=== PATIENT | female | born 1935 | race Caucasian/White ===

== ENCOUNTER 2018-01-06 09:22 | Inpatient (IN) ==
[2018-01-06] MEDS ORDERED: ONDANSETRON 4 MG/2 ML VIAL IV PRN ×2 (09:51→13:44)
[2018-01-06] MEDS ORDERED: MORPHINE 2 MG/1 ML SYRINGE IV PRN (09:51)
[2018-01-06] MEDS ORDERED: ALUM/MAG/SIMETH/LIDO VISC 1:1 30 ML BOTTLE PO STA (09:51)
[2018-01-06] MEDS ORDERED: ASPIRIN 325 MG TABLET PO STA (09:51)
[2018-01-06] MEDS ORDERED: ENOXAPARIN 100 MG/ML SYRINGE SUBCUT STA (09:51)
[2018-01-06] MEDS ORDERED: ALUM/MAG/SIMETH/LIDO VISC 1:1 30 ML BOTTLE PO ONE (10:06)
[2018-01-06] MEDS ORDERED: ENOXAPARIN 60 MG/0.6 ML SYRINGE ONE (10:06)
[2018-01-06] MEDS ORDERED: ASPIRIN 325 MG TABLET ONE (10:06)
[2018-01-06 10:32] LABS: Basophils # 0.1 10*3/uL (0.0-0.2); Basophils % 0.7 % (0.0-0.8); Eosinophils # 0.1 10*3/uL (0.0-0.87); Hematocrit 43.7 VOL% (35.7-47.0); Hemoglobin 14.1 GM/DL (12.0-16.0); Immature Granulocytes % 0.5 %; Immature Granulocytes Absolute 0.04 #; Lymphocytes # 1.8 10*3/uL (1.4-4.0); Lymphocytes % 22.2 % (21.3-54.2); Mean Corpuscular HGB Conc 32.3 GM/DL (32-36); Mean Corpuscular Hemoglobin 28 PG (27-34); Mean Corpuscular Volume 85.5 FL (87-102); Mean Platelet Volume 10.3 FL (9.6-12.0); Monocytes # 0.5 10*3/uL (0.11-0.8); Monocytes % 6.4 % (1.7-12.7); Neutrophils # 5.6 10*3/uL (1.4-7.4); Neutrophils % 69.2 % (38.7-73.9); Platelet Count 240 T/CUMM (130-400); Red Blood Count 5.11 MC/CUMM (3.8-5.5); Red Cell Distribution Width 14.4 % (9.3-17.3); White Blood Count 8.1 T/CUMM (4-12)
[2018-01-06 10:43] LABS: Apearance,Urine CLOUDY (Clear); Bacteria,Urine Many /HPF (Few); Bilirubin,Urine Negative (Negative); Blood, Urine Negative (Negative); Glucose,Urine (UA) Negative (Negative); Hyaline Casts,Urine 13 /LPF (0-3); Ketones,Urine 5 mg/dL (Negative); Mucus,Urine Few /LPF (Occasional); Nitrite,Urine Positive (Negative); Protein,Urine 30 MG/DL; RBC,Urine 16 /HPF (0-4); Squamous Epithelial Cell,Urine Occasional /HPF (0-10); Urine Color Amber (Yellow); Urine Specific Gravity 1.014 (1.001-1.035); WBC,Urine 1628 /HPF (0-6)
[2018-01-06 10:49] LABS: PT Patient Result 10.8 SECS; Partial Thromboplastin Time 27.3 SECS (0-40)
[2018-01-06 10:52] LABS: Alanine Aminotransferase 18 U/L (13-56); Albumin 4.1 G/DL (3.4-5.0); Alkaline Phosphatase 69 U/L (45-117); Aspartate Amino Transferase 16 U/L (0-37); Bilirubin,Total < 0.39 MG/DL (0.2-1.0); Blood Urea Nitrogen 14 MG/DL (7-18); Calcium 9.4 MG/DL (8.5-10.1); Glucose 109 MG/DL (74-106); Osmolality,Calculated 280.4 MOS/KG (273-304); Potassium 3.5 MMOL/L (3.5-5.1); Sodium 140 MMOL/L (136-145); Total Protein 8.1 G/DL (6.4-8.3)
[2018-01-06] MEDS ORDERED: cefTRIAXone 1,000 MG in SODIUM CHLORIDE 0.9% 100 ML IV STA (12:36)
[2018-01-06] MEDS ORDERED: cefTRIAXone 1,000 MG VIAL ONE (12:38)
[2018-01-06] MEDS ORDERED: ALBUTEROL 2.5 MG/3 ML NEB RESP TX PRN (13:44)
[2018-01-06] MEDS ORDERED: ACETAMINOPHEN 325 MG TABLET PO PRN (13:44)
[2018-01-06] MEDS ORDERED: PANTOPRAZOLE 40 MG VIAL IV SCH (14:00)
[2018-01-06] MEDS ORDERED: CLORAZEPATE 7.5 MG TABLET PO PRN (19:00)
[2018-01-06] MEDS ORDERED: hydrALAZINE 20 MG/1 ML VIAL IV PRN (19:04)
[2018-01-06 19:05] LABS: Troponin I Only < 0.015 NG/ML (0.00-0.045)
[2018-01-06] MEDS: SODIUM CHLORIDE 0.9% 1,000 ML IV SCH (19:35)
[2018-01-06] MEDS: POTASSIUM CHLORIDE 20 MEQ TABLET PO SCH (20:54)
[2018-01-06] MEDS: PANTOPRAZOLE 40 MG TABLET PO SCH (20:54)
[2018-01-06] MEDS: SUCRALFATE 1 GM TABLET PO SCH (20:54)
[2018-01-06] MEDS ORDERED: NITROGLYCERIN 0.4 MG/HR PATCH TRANSDERM SCH (21:00)
[2018-01-07 05:41] LABS: Basophils % 0.5 % (0.0-0.8); Eosinophils # 0.2 10*3/uL (0.0-0.87); Eosinophils % 2.3 % (0.00-10.9); Hemoglobin 11.6 GM/DL (12.0-16.0); Immature Granulocytes % 0.3 %; Immature Granulocytes Absolute 0.02 #; Lymphocytes # 2.8 10*3/uL (1.4-4.0); Lymphocytes % 38.6 % (21.3-54.2); Mean Corpuscular HGB Conc 34.1 GM/DL (32-36); Mean Corpuscular Hemoglobin 28 PG (27-34); Mean Corpuscular Volume 82.7 FL (87-102); Mean Platelet Volume 10.5 FL (9.6-12.0); Monocytes # 0.8 10*3/uL (0.11-0.8); Monocytes % 10.6 % (1.7-12.7); Neutrophils # 3.5 10*3/uL (1.4-7.4); Neutrophils % 47.7 % (38.7-73.9); Platelet Count 202 T/CUMM (130-400); Red Blood Count 4.11 MC/CUMM (3.8-5.5); Red Cell Distribution Width 14.7 % (9.3-17.3); White Blood Count 7.3 T/CUMM (4-12)
[2018-01-07 06:19] LABS: Calcium 8.7 MG/DL (8.5-10.1)
[2018-01-07] MEDS: ASPIRIN EC 81 MG TABLET PO SCH (08:23)
[2018-01-07] MEDS: POTASSIUM CHLORIDE 20 MEQ TABLET PO SCH ×2 (08:23→21:16)
[2018-01-07] MEDS: SUCRALFATE 1 GM TABLET PO SCH ×4 (08:23→21:16)
[2018-01-07] MEDS: PANTOPRAZOLE 40 MG TABLET PO SCH ×2 (08:24→21:17)
[2018-01-07] MEDS: amLODIPine 5 MG TABLET PO SCH (08:24)
[2018-01-07] MEDS: BISOPROLOL 5 MG TABLET PO SCH (08:24)
[2018-01-07] MEDS ORDERED: ASPIRIN CHEW 81 MG TABLET PO SCH (09:00)
[2018-01-07] MEDS ORDERED: cefTRIAXone 1,000 MG in SYRINGE 1 EACH IV SCH (12:00)
[2018-01-07] MEDS: busPIRone 5 MG TABLET PO SCH ×2 (14:47→21:16)
[2018-01-07] MEDS: SODIUM CHLORIDE 0.9% 1,000 ML IV SCH (16:13)
[2018-01-08 06:04] LABS: Basophils # 0.1 10*3/uL (0.0-0.2); Basophils % 0.7 % (0.0-0.8); Eosinophils # 0.2 10*3/uL (0.0-0.87); Eosinophils % 3.1 % (0.00-10.9); Hematocrit 36.3 VOL% (35.7-47.0); Hemoglobin 11.9 GM/DL (12.0-16.0); Immature Granulocytes % 0.4 %; Immature Granulocytes Absolute 0.03 #; Lymphocytes # 3.1 10*3/uL (1.4-4.0); Lymphocytes % 44.3 % (21.3-54.2); Mean Corpuscular HGB Conc 32.8 GM/DL (32-36); Mean Corpuscular Hemoglobin 28 PG (27-34); Monocytes # 0.7 10*3/uL (0.11-0.8); Monocytes % 9.6 % (1.7-12.7); Neutrophils % 41.9 % (38.7-73.9); Platelet Count 206 T/CUMM (130-400); Red Blood Count 4.27 MC/CUMM (3.8-5.5); Red Cell Distribution Width 14.7 % (9.3-17.3); White Blood Count 7.1 T/CUMM (4-12)
[2018-01-08] MEDS: SODIUM CHLORIDE 0.9% 1,000 ML IV SCH (07:32)
[2018-01-08 08:10] VITALS: BP 139/65
[2018-01-08] MEDS: ASPIRIN EC 81 MG TABLET PO SCH (08:36)
[2018-01-08] MEDS: POTASSIUM CHLORIDE 20 MEQ TABLET PO SCH (08:36)
[2018-01-08] MEDS: BISOPROLOL 5 MG TABLET PO SCH (08:36)
[2018-01-08] MEDS: PANTOPRAZOLE 40 MG TABLET PO SCH (08:36)
[2018-01-08] MEDS: SUCRALFATE 1 GM TABLET PO SCH (08:36)
[2018-01-08] MEDS: busPIRone 5 MG TABLET PO SCH (08:36)
[2018-01-08] MEDS: amLODIPine 5 MG TABLET PO SCH (08:36)
== END 2018-01-08 12:35 | disposition home or self-care (01) | DRG 690 ==
LOC: EDUNIT# → EDBD → N.ED 09:22 → N.EDINP 13:44 → SUATTDRO 13:44 → N.EDINP 14:52 → N.TELEN 15:07
PROVIDERS: ADMIT Hospitalist; ATTEND Internal Medicine Cardiovascular Disease

== ENCOUNTER 2019-03-16 05:43 | Observation (INO) ==
[2019-03-16] MEDS ORDERED: NITROGLYCERIN 2% OINT 1 INCH/GM PACK TOP STA (06:22)
[2019-03-16 06:30] LABS: Basophils # 0.1 10*3/uL (0.0-0.2); Basophils % 0.5 % (0.0-0.8); Eosinophils # 0.1 10*3/uL (0.0-0.87); Eosinophils % 1.5 % (0.00-10.9); Hematocrit 40.8 VOL% (35.7-47.0); Hemoglobin 13.2 GM/DL (12.0-16.0); Immature Granulocytes % 0.5 %; Immature Granulocytes Absolute 0.05 #; Lymphocytes # 2.6 10*3/uL (1.4-4.0); Lymphocytes % 27.1 % (21.3-54.2); Mean Corpuscular HGB Conc 32.4 GM/DL (32-36); Mean Corpuscular Hemoglobin 27 PG (27-34); Mean Corpuscular Volume 82.8 FL (87-102); Mean Platelet Volume 10.4 FL (9.6-12.0); Monocytes # 1.1 10*3/uL (0.11-0.8); Monocytes % 11.2 % (1.7-12.7); Neutrophils # 5.6 10*3/uL (1.4-7.4); Neutrophils % 59.2 % (38.7-73.9); Platelet Count 271 T/CUMM (130-400); Red Blood Count 4.93 MC/CUMM (3.8-5.5); Red Cell Distribution Width 14.8 % (9.3-17.3); White Blood Count 9.4 T/CUMM (4-12)
[2019-03-16 06:47] LABS: Apearance,Urine CLEAR (Clear); Bacteria,Urine Occasional /HPF (Few); Bilirubin,Urine Negative (Negative); Blood, Urine Negative (Negative); Glucose,Urine (UA) Negative (Negative); Ketones,Urine Negative (Negative); Nitrite,Urine Negative (Negative); Protein,Urine Negative; RBC,Urine 1 /HPF (0-4); Squamous Epithelial Cell,Urine Occasional /HPF (0-10); Urine Color Yellow (Yellow); Urine Urobilinogen < 2.0 EU/DL (0.2-1.0); WBC,Urine 3 /HPF (0-6)
[2019-03-16 07:04] LABS: Alanine Aminotransferase 22 U/L (13-56); Albumin 3.4 G/DL (3.4-5.0); Alkaline Phosphatase 78 U/L (45-117); Aspartate Amino Transferase 20 U/L (0-37); Bilirubin,Total < 0.39 MG/DL (0.2-1.0); Blood Urea Nitrogen 17 MG/DL (7-18); Calcium 8.8 MG/DL (8.5-10.1); Glucose 132 MG/DL (74-106); Osmolality,Calculated 284.3 MOS/KG (273-304); Potassium 3.1 MMOL/L (3.5-5.1); Sodium 141 MMOL/L (136-145); Total Protein 7.7 G/DL (6.4-8.3)
[2019-03-16] MEDS ORDERED: LACTATED RINGERS 500 ML IV ONE (08:01)
[2019-03-16] MEDS ORDERED: POTASSIUM CHLORIDE 20 MEQ TABLET PO STA (08:01)
[2019-03-16] MEDS ORDERED: MORPHINE 4 MG/1 ML VIAL IV PRN (09:17)
[2019-03-16] MEDS ORDERED: ONDANSETRON 4 MG/2 ML VIAL IV PRN (09:17)
[2019-03-16] MEDS ORDERED: MAGNESIUM SULF RIDER 2 GM in PREMIX 1 EACH IV PRN (09:23)
[2019-03-16] MEDS ORDERED: MAGNESIUM SULF RIDER 4 GM in PREMIX 1 EACH IV PRN (09:23)
[2019-03-16] MEDS ORDERED: CLORAZEPATE 7.5 MG TABLET PO PRN (09:24)
[2019-03-16] MEDS: ENOXAPARIN 40 MG/0.4 ML SYRINGE SUBCUT SCH (10:06)
[2019-03-16 11:07] LABS: Risk Ratio 5.45; VLDL CHOLESTEROL 33.8 MG/DL
[2019-03-16] MEDS ORDERED: SERTRALINE 25 MG TABLET PO SCH (12:00)
[2019-03-16] MEDS: ACETAMINOPHEN 325 MG TABLET PO SCH ×2 (12:03→20:52)
[2019-03-16] MEDS ORDERED: SODIUM CHLORIDE 0.9% 1,000 ML IV SCH (15:00)
[2019-03-16] MEDS: GABAPENTIN 100 MG CAPSULE PO SCH ×2 (17:37→20:53)
[2019-03-16] MEDS ORDERED: MIRTAZAPINE 15 MG TABLET PO SCH (21:00)
[2019-03-16] MEDS ORDERED: NITROGLYCERIN 0.4 MG/HR PATCH TRANSDERM SCH (21:00)
[2019-03-17 05:36] LABS: Calcium 8.5 MG/DL (8.5-10.1); Osmolality,Calculated 287.8 MOS/KG (273-304); Potassium 3.7 MMOL/L (3.5-5.1)
[2019-03-17 05:38] LABS: Troponin I < 0.015 NG/ML (0.00-0.045)
[2019-03-17 05:44] LABS: Basophils % 0.5 % (0.0-0.8); Eosinophils # 0.3 10*3/uL (0.0-0.87); Eosinophils % 3.4 % (0.00-10.9); Hematocrit 37.6 VOL% (35.7-47.0); Hemoglobin 12.2 GM/DL (12.0-16.0); Immature Granulocytes % 0.3 %; Immature Granulocytes Absolute 0.02 #; Lymphocytes # 2.9 10*3/uL (1.4-4.0); Lymphocytes % 38.3 % (21.3-54.2); Mean Corpuscular HGB Conc 32.4 GM/DL (32-36); Mean Corpuscular Hemoglobin 27 PG (27-34); Mean Corpuscular Volume 83.6 FL (87-102); Neutrophils # 3.4 10*3/uL (1.4-7.4); Neutrophils % 44.5 % (38.7-73.9); Platelet Count 234 T/CUMM (130-400); Red Cell Distribution Width 15.1 % (9.3-17.3); White Blood Count 7.5 T/CUMM (4-12)
[2019-03-17 07:58] VITALS: BP 152/72
[2019-03-17] MEDS ORDERED: BISOPROLOL 5 MG TABLET PO SCH (09:00)
[2019-03-17] MEDS ORDERED: amLODIPine 5 MG TABLET PO SCH (09:00)
[2019-03-17] MEDS ORDERED: FUROSEMIDE 80 MG TABLET PO SCH (09:00)
[2019-03-17] MEDS ORDERED: POTASSIUM CHLORIDE 20 MEQ TABLET PO SCH (09:00)
[2019-03-17] MEDS ORDERED: ASPIRIN EC 81 MG TABLET PO SCH (09:00)
[2019-03-17] MEDS ORDERED: PANTOPRAZOLE 40 MG TABLET PO SCH (09:00)
[2019-03-17] MEDS: ENOXAPARIN 40 MG/0.4 ML SYRINGE SUBCUT SCH (09:33)
[2019-03-17] MEDS: GABAPENTIN 100 MG CAPSULE PO SCH (09:34)
[2019-03-17] MEDS: ACETAMINOPHEN 325 MG TABLET PO SCH (10:05)
[2019-03-19] MEDS ORDERED: SERTRALINE 25 MG TABLET PO SCH (21:00)
== END 2019-03-17 15:15 | disposition home or self-care (01) ==
LOC: EDUNIT# → EDBD → N.EDINP 05:43 → N.ED 05:43 → N.EDINP 15:38 → N.TELEN 15:40
PROVIDERS: ADMIT Internal Medicine; ATTEND Internal Medicine

== ENCOUNTER 2019-06-30 02:05 | Observation (INO) ==
[2019-06-30 02:36] LABS: Basophils # 0.1 10*3/uL (0.0-0.2); Basophils % 0.7 % (0.0-0.8); Eosinophils # 0.3 10*3/uL (0.0-0.87); Eosinophils % 2.7 % (0.00-10.9); Hematocrit 40.5 VOL% (35.7-47.0); Hemoglobin 12.8 GM/DL (12.0-16.0); Immature Granulocytes % 0.4 %; Immature Granulocytes Absolute 0.04 #; Lymphocytes # 3.9 10*3/uL (1.4-4.0); Lymphocytes % 37.1 % (21.3-54.2); Mean Corpuscular HGB Conc 31.6 GM/DL (32-36); Mean Corpuscular Volume 84.2 FL (87-102); Mean Platelet Volume 10.5 FL (9.6-12.0); Monocytes % 11.2 % (1.7-12.7); Neutrophils % 47.9 % (38.7-73.9); Platelet Count 184 T/CUMM (130-400); Red Blood Count 4.81 MC/CUMM (3.8-5.5); Red Cell Distribution Width 16.3 % (9.3-17.3); White Blood Count 10.5 T/CUMM (4-12)
[2019-06-30 02:57] LABS: Alanine Aminotransferase 15 U/L (13-56); Albumin 3.4 G/DL (3.4-5.0); Alkaline Phosphatase 60 U/L (45-117); Aspartate Amino Transferase 18 U/L (0-37); Bilirubin,Total < 0.39 MG/DL (0.2-1.0); Blood Urea Nitrogen 11 MG/DL (7-18); Calcium 9.1 MG/DL (8.5-10.1); Glucose 126 MG/DL (74-106); Osmolality,Calculated 283.1 MOS/KG (273-304); Total Protein 7.5 G/DL (6.4-8.3)
[2019-06-30] MEDS ORDERED: ENOXAPARIN 40 MG/0.4 ML SYRINGE SUBCUT SCH (05:00)
[2019-06-30] MEDS ORDERED: PNEUMOCOCCAL VACCINE (13 VALENT) 0.5 ML SYRINGE IM ONE (05:22)
[2019-06-30 06:18] LABS: Risk Ratio 5.54; VLDL CHOLESTEROL 38.2 MG/DL
[2019-06-30] MEDS ORDERED: ASPIRIN EC 325 MG TABLET PO SCH (09:00)
[2019-06-30] MEDS ORDERED: POTASSIUM CHLORIDE RIDER 10 MEQ in PREMIX 1 EACH IV PRN (10:39)
[2019-06-30] MEDS ORDERED: BISOPROLOL 5 MG TABLET PO SCH (11:00)
[2019-06-30] MEDS ORDERED: ISOSORBIDE MONONITRATE 30 MG TABLET PO SCH (11:00)
[2019-06-30] MEDS ORDERED: amLODIPine 5 MG TABLET PO SCH (11:00)
[2019-06-30] MEDS ORDERED: PANTOPRAZOLE 40 MG TABLET PO SCH (11:00)
[2019-06-30 12:06] VITALS: BP 147/67
[2019-06-30] MEDS ORDERED: VENLAFAXINE 37.5 MG TABLET PO SCH (14:00)
[2019-06-30] MEDS ORDERED: ACETAMINOPHEN 325 MG TABLET PO SCH (14:00)
[2019-06-30] MEDS ORDERED: GABAPENTIN 100 MG CAPSULE PO SCH (15:00)
[2019-06-30] MEDS ORDERED: CLORAZEPATE 7.5 MG TABLET PO PRN (15:09)
[2019-06-30] MEDS ORDERED: POTASSIUM CHLORIDE 10 MEQ TABLET PO SCH (21:00)
[2019-06-30] MEDS ORDERED: ASPIRIN EC 81 MG TABLET PO SCH (21:00)
[2019-06-30] MEDS ORDERED: CRANBERRY ASCORBIC ACID PO SCH (21:00)
[2019-06-30] MEDS ORDERED: ROSUVASTATIN 10 MG TABLET PO SCH (21:00)
[2019-06-30] MEDS ORDERED: MIRTAZAPINE 15 MG TABLET PO SCH (21:00)
[2019-06-30] MEDS ORDERED: SERTRALINE 25 MG TABLET PO SCH (21:00)
[2019-07-01] MEDS ORDERED: VENLAFAXINE XR 37.5 MG CAPSULE PO SCH (09:00)
[2019-07-01] MEDS ORDERED: PANTOPRAZOLE 40 MG TABLET PO SCH (09:00)
== END 2019-06-30 16:37 | disposition home or self-care (01) ==
LOC: EDUNIT# → EDBD → EDSEX → N.EDINP 02:05 → N.ED 02:05 → N.TELES 04:44
PROVIDERS: ADMIT Internal Medicine; ATTEND Internal Medicine

== ENCOUNTER 2019-09-27 11:43 | Inpatient (IN) ==
[2019-09-27] MEDS ORDERED: ENOXAPARIN 100 MG/ML SYRINGE SUBCUT STA (12:11)
[2019-09-27] MEDS ORDERED: NITROGLYCERIN 2% OINT 1 INCH/GM PACK TOP STA (12:11)
[2019-09-27] MEDS ORDERED: ASPIRIN 325 MG TABLET PO STA (12:11)
[2019-09-27 12:43] LABS: Basophils % 0.4 % (0.0-0.8); Eosinophils # 0.2 10*3/uL (0.0-0.87); Eosinophils % 1.7 % (0.00-10.9); Hematocrit 42.4 VOL% (35.7-47.0); Hemoglobin 14.1 GM/DL (12.0-16.0); Immature Granulocytes % 0.3 %; Immature Granulocytes Absolute 0.03 #; Mean Corpuscular HGB Conc 33.3 GM/DL (32-36); Mean Corpuscular Volume 84.8 FL (87-102); Mean Platelet Volume 10.3 FL (9.6-12.0); Monocytes % 9.1 % (1.7-12.7); Neutrophils % 66.5 % (38.7-73.9); Platelet Count 230 T/CUMM (130-400); Red Cell Distribution Width 14.8 % (9.3-17.3); White Blood Count 9.3 T/CUMM (4-12)
[2019-09-27 12:53] LABS: PT Patient Result 10.7 SECS (9.6-12.2); Partial Thromboplastin Time 25.6 SECS (20.8-36.0)
[2019-09-27 12:56] LABS: Osmolality,Calculated 283.4 MOS/KG (273-304)
[2019-09-27] MEDS ORDERED: MAGNESIUM SULF RIDER 4 GM in PREMIX 1 EACH IV PRN (13:44)
[2019-09-27] MEDS ORDERED: MAGNESIUM SULF RIDER 2 GM in PREMIX 1 EACH IV PRN (13:44)
[2019-09-27] MEDS ORDERED: ONDANSETRON 4 MG/2 ML VIAL IV PRN (13:44)
[2019-09-27] MEDS ORDERED: ZALEPLON 5 MG CAPSULE PO PRN (13:44)
[2019-09-27] MEDS ORDERED: MORPHINE 4 MG/1 ML VIAL IV PRN (13:44)
[2019-09-27] MEDS ORDERED: NITROGLYCERIN SL 0.4 MG TABLET SL PRN (13:47)
[2019-09-27] MEDS ORDERED: TICAGRELOR 90 MG TABLET PO STA (13:48)
[2019-09-27] MEDS ORDERED: INFLUENZA VIRUS VACCINE 0.5 ML SYRINGE IM ONE (15:24)
[2019-09-27] MEDS: SODIUM CHLORIDE 0.45% 1,000 ML IV SCH (15:28)
[2019-09-27] MEDS: POTASSIUM CHLORIDE 20 MEQ TABLET PO PRN ×4 (16:10→21:49)
[2019-09-27] MEDS ORDERED: NITROGLYCERIN 0.4 MG/HR PATCH TRANSDERM PRN (19:45)
[2019-09-27] MEDS ORDERED: FUROSEMIDE 40 MG TABLET PO PRN (19:45)
[2019-09-27] MEDS ORDERED: CLORAZEPATE 7.5 MG TABLET PO PRN (19:45)
[2019-09-27] MEDS ORDERED: POTASSIUM CHLORIDE 20 MEQ PACK PO ONE (20:28)
[2019-09-27] MEDS ORDERED: CRANBERRY ASCORBIC ACID PO SCH (21:00)
[2019-09-27] MEDS: PANTOPRAZOLE 40 MG TABLET PO SCH (21:26)
[2019-09-27] MEDS: ROSUVASTATIN 10 MG TABLET PO SCH (21:26)
[2019-09-27] MEDS: VENLAFAXINE 37.5 MG TABLET PO SCH (21:26)
[2019-09-27] MEDS: MIRTAZAPINE 15 MG TABLET PO SCH (21:26)
[2019-09-28] MEDS ORDERED: ENOXAPARIN 60 MG/0.6 ML SYRINGE SUBCUT SCH (01:00)
[2019-09-28] MEDS: ENOXAPARIN 80 MG/0.8 ML SYRINGE SUBCUT SCH ×2 (02:25→13:36)
[2019-09-28 04:25] LABS: Basophils % 0.3 % (0.0-0.8); Eosinophils # 0.2 10*3/uL (0.0-0.87); Eosinophils % 2.1 % (0.00-10.9); Hemoglobin 12.5 GM/DL (12.0-16.0); Immature Granulocytes % 0.4 %; Immature Granulocytes Absolute 0.04 #; Lymphocytes % 20.4 % (21.3-54.2); Mean Corpuscular HGB Conc 32.9 GM/DL (32-36); Mean Corpuscular Volume 86.2 FL (87-102); Mean Platelet Volume 10.9 FL (9.6-12.0); Neutrophils % 65.8 % (38.7-73.9); Platelet Count 206 T/CUMM (130-400); Red Blood Count 4.41 MC/CUMM (3.8-5.5); Red Cell Distribution Width 14.9 % (9.3-17.3); White Blood Count 9.9 T/CUMM (4-12)
[2019-09-28 04:54] LABS: Albumin 3.1 G/DL (3.4-5.0); Bilirubin,Total 0.4 MG/DL (0.2-1.0); CKMB % 10.5 %; Calcium 8.5 MG/DL (8.5-10.1); Osmolality,Calculated 282.1 MOS/KG (273-304); Total Protein 7.1 G/DL (6.4-8.3)
[2019-09-28 05:18] LABS: Troponin I 31.4 NG/ML (0.00-0.045)
[2019-09-28] MEDS ORDERED: DIAZEPAM 5 MG TABLET PO ONE (08:11)
[2019-09-28] MEDS ORDERED: diphenhydrAMINE CAP 25 MG CAPSULE PO ONE (08:11)
[2019-09-28] MEDS: ISOSORBIDE MONONITRATE 30 MG TABLET PO SCH (08:26)
[2019-09-28] MEDS: BISOPROLOL 5 MG TABLET PO SCH (08:26)
[2019-09-28] MEDS: amLODIPine 5 MG TABLET PO SCH (08:28)
[2019-09-28] MEDS: PANTOPRAZOLE 40 MG TABLET PO SCH ×2 (08:28→20:53)
[2019-09-28] MEDS: ASPIRIN CHEW 81 MG TABLET PO SCH (08:33)
[2019-09-28] MEDS: SODIUM CHLORIDE 0.45% 1,000 ML IV SCH (08:37)
[2019-09-28] MEDS: VENLAFAXINE 37.5 MG TABLET PO SCH ×2 (10:51→20:53)
[2019-09-28 13:13] LABS: CKMB % 7.9 %
[2019-09-28 13:15] LABS: Troponin I 30.6 NG/ML (0.00-0.045)
[2019-09-28] MEDS ORDERED: LIDOCAINE 1% 20 ML VIAL ONE (13:48)
[2019-09-28] MEDS ORDERED: MIDAZOLAM 2 MG/2 ML VIAL ONE (14:07)
[2019-09-28] MEDS ORDERED: fentaNYL 100 MCG/2 ML VIAL ONE (14:08)
[2019-09-28] MEDS ORDERED: FAMOTIDINE 20 MG/2 ML VIAL IV ONE (14:25)
[2019-09-28] MEDS ORDERED: HEPARIN 5,000 UNIT/1 ML VIAL ONE (14:43)
[2019-09-28] MEDS ORDERED: TIROFIBAN 5,000 MCG/100 ML PREMIX IV ONE (14:53)
[2019-09-28] MEDS ORDERED: TIROFIBAN 5,000 MCG/100 ML PREMIX IV SCH (15:00)
[2019-09-28] MEDS ORDERED: diphenhydrAMINE CAP 25 MG CAPSULE PO PRN (17:00)
[2019-09-28] MEDS ORDERED: MAGNESIUM HYDROXIDE SUSP 30 ML UDCUP PO PRN (17:01)
[2019-09-28 17:15] LABS: CKMB % 7.1 %
[2019-09-28 17:19] LABS: Troponin I 31.9 NG/ML (0.00-0.045)
[2019-09-28 19:48] LABS: CKMB % 6.4 %
[2019-09-28] MEDS ORDERED: SODIUM CHLORIDE 0.9% 1,000 ML IV SCH (20:35)
[2019-09-28] MEDS: ROSUVASTATIN 10 MG TABLET PO SCH (20:53)
[2019-09-28] MEDS: MIRTAZAPINE 15 MG TABLET PO SCH (20:53)
[2019-09-28] MEDS: CILOSTAZOL 50 MG TABLET PO SCH (20:53)
[2019-09-28 22:45] LABS: CKMB % 6.6 %
[2019-09-28 22:47] LABS: Troponin I 21.1 NG/ML (0.00-0.045)
[2019-09-29] MEDS ORDERED: PHENYLEPHRINE DRIP 40 MG/250 ML PREMIX IV PRN (02:30)
[2019-09-29 04:30] LABS: Basophils % 0.4 % (0.0-0.8); Eosinophils # 0.1 10*3/uL (0.0-0.87); Hematocrit 36.4 VOL% (35.7-47.0); Hemoglobin 11.5 GM/DL (12.0-16.0); Immature Granulocytes % 0.6 %; Immature Granulocytes Absolute 0.05 #; Lymphocytes # 1.6 10*3/uL (1.4-4.0); Lymphocytes % 17.9 % (21.3-54.2); Mean Corpuscular HGB Conc 31.6 GM/DL (32-36); Mean Corpuscular Volume 88.8 FL (87-102); Mean Platelet Volume 10.8 FL (9.6-12.0); Monocytes % 9.2 % (1.7-12.7); Neutrophils % 70.9 % (38.7-73.9); Platelet Count 187 T/CUMM (130-400); Red Cell Distribution Width 14.9 % (9.3-17.3); White Blood Count 8.9 T/CUMM (4-12)
[2019-09-29 04:47] LABS: Risk Ratio 3.14; VLDL CHOLESTEROL 33.8 MG/DL
[2019-09-29] MEDS: CILOSTAZOL 50 MG TABLET PO SCH ×3 (10:29→20:10)
[2019-09-29] MEDS: ISOSORBIDE MONONITRATE 30 MG TABLET PO SCH (10:35)
[2019-09-29] MEDS: VENLAFAXINE 37.5 MG TABLET PO SCH ×2 (10:36→20:10)
[2019-09-29] MEDS: PANTOPRAZOLE 40 MG TABLET PO SCH ×2 (10:36→20:11)
[2019-09-29] MEDS: amLODIPine 5 MG TABLET PO SCH (10:36)
[2019-09-29] MEDS: ASPIRIN CHEW 81 MG TABLET PO SCH (10:36)
[2019-09-29] MEDS: BISOPROLOL 5 MG TABLET PO SCH (10:37)
[2019-09-29] MEDS: POTASSIUM CHLORIDE 20 MEQ TABLET PO PRN ×2 (12:52→14:52)
[2019-09-29 14:08] LABS: CKMB % 4.2 %
[2019-09-29 14:11] LABS: Troponin I 18.7 NG/ML (0.00-0.045)
[2019-09-29] MEDS: ROSUVASTATIN 10 MG TABLET PO SCH (20:10)
[2019-09-29] MEDS: (Potassium 99 MG) PO SCH (20:11)
[2019-09-29] MEDS: MIRTAZAPINE 15 MG TABLET PO SCH (20:11)
[2019-09-30 04:53] LABS: Basophils % 0.4 % (0.0-0.8); Eosinophils # 0.3 10*3/uL (0.0-0.87); Eosinophils % 3.9 % (0.00-10.9); Hemoglobin 10.5 GM/DL (12.0-16.0); Immature Granulocytes % 0.5 %; Immature Granulocytes Absolute 0.04 #; Lymphocytes # 2.5 10*3/uL (1.4-4.0); Lymphocytes % 29.2 % (21.3-54.2); Mean Corpuscular HGB Conc 32.8 GM/DL (32-36); Mean Corpuscular Volume 86.3 FL (87-102); Mean Platelet Volume 11.2 FL (9.6-12.0); Monocytes % 12.4 % (1.7-12.7); Neutrophils % 53.6 % (38.7-73.9); Platelet Count 178 T/CUMM (130-400); Red Blood Count 3.71 MC/CUMM (3.8-5.5); White Blood Count 8.5 T/CUMM (4-12)
[2019-09-30 05:08] LABS: Calcium 8.2 MG/DL (8.5-10.1); Osmolality,Calculated 277.5 MOS/KG (273-304)
[2019-09-30] MEDS: PANTOPRAZOLE 40 MG TABLET PO SCH (09:25)
[2019-09-30] MEDS: BISOPROLOL 5 MG TABLET PO SCH (09:25)
[2019-09-30] MEDS: ASPIRIN CHEW 81 MG TABLET PO SCH (09:25)
[2019-09-30] MEDS: CILOSTAZOL 50 MG TABLET PO SCH (09:25)
[2019-09-30] MEDS: ISOSORBIDE MONONITRATE 30 MG TABLET PO SCH (09:25)
[2019-09-30] MEDS: amLODIPine 5 MG TABLET PO SCH (09:25)
[2019-09-30] MEDS: VENLAFAXINE 37.5 MG TABLET PO SCH (09:26)
[2019-09-30] MEDS: (Potassium 99 MG) PO SCH (09:27)
[2019-09-30 11:30] VITALS: BP 104/50
== END 2019-09-30 15:44 | disposition home or self-care (01) | DRG 251 ==
LOC: EDBD → EDUNIT# → N.ED 11:43 → N.EDINP 13:44 → N.CC 15:00 → N.TELEN 09-29 18:04
PROVIDERS: ADMIT Internal Medicine Cardiovascular Disease; ATTEND Internal Medicine Cardiovascular Disease

== ENCOUNTER 2021-04-19 21:26 | Observation (INO) ==
[2021-04-19] MEDS ORDERED: ASPIRIN 325 MG TABLET PO STA (21:54)
[2021-04-19 22:15] LABS: Basophils # 0.1 10*3/uL (0.0-0.2); Basophils % 0.4 % (0.0-0.8); Eosinophils # 0.1 10*3/uL (0.0-0.87); Eosinophils % 0.8 % (0.00-10.9); Hematocrit 41.7 VOL% (35.7-47.0); Hemoglobin 13.9 GM/DL (12.0-16.0); Immature Granulocytes % 0.4 %; Immature Granulocytes Absolute 0.06 #; Lymphocytes # 1.8 10*3/uL (1.4-4.0); Mean Corpuscular HGB Conc 33.3 GM/DL (32-36); Mean Corpuscular Volume 85.6 FL (87-102); Mean Platelet Volume 10.4 FL (9.6-12.0); Monocytes % 7.2 % (1.7-12.7); Neutrophils % 78.2 % (38.7-73.9); Platelet Count 214 T/CUMM (130-400); Red Blood Count 4.87 MC/CUMM (3.8-5.5); White Blood Count 13.6 T/CUMM (4-12)
[2021-04-19] MEDS ORDERED: ONDANSETRON 4 MG/2 ML VIAL IV STA (22:19)
[2021-04-19 22:41] LABS: Alanine Aminotransferase 26 U/L (13-56); Albumin 3.6 G/DL (3.4-5.0); Alkaline Phosphatase 52 U/L (45-117); Aspartate Amino Transferase 31 U/L (0-37); Bilirubin,Total < 0.39 MG/DL (0.2-1.0); Blood Urea Nitrogen 16 MG/DL (7-18); Calcium 8.7 MG/DL (8.5-10.1); Carbon Dioxide 27 MMOL/L (21-32); Estimated Glom Filtration Rate 54 ML/MIN; Glucose 200 MG/DL (74-106); Osmolality,Calculated 283.5 MOS/KG (273-304); Potassium 3.2 MMOL/L (3.5-5.1); Sodium 139 MMOL/L (136-145); Total Protein 7.7 G/DL (6.4-8.2)
[2021-04-20] MEDS ORDERED: DEXTROSE 50% 25 GM/50 ML VIAL IV PRN ×2 (00:09)
[2021-04-20] MEDS ORDERED: GLUCAGON 1 MG VIAL IM PRN ×2 (00:09)
[2021-04-20] MEDS ORDERED: ACETAMINOPHEN 325 MG TABLET PO PRN (00:09)
[2021-04-20] MEDS ORDERED: ONDANSETRON 4 MG/2 ML VIAL IV PRN (00:09)
[2021-04-20] MEDS: ENOXAPARIN 40 MG/0.4 ML SYRINGE SUBCUT SCH (01:05)
[2021-04-20 04:25] LABS: Basophils # 0.1 10*3/uL (0.0-0.2); Basophils % 0.4 % (0.0-0.8); Eosinophils # 0.2 10*3/uL (0.0-0.87); Eosinophils % 1.3 % (0.00-10.9); Hematocrit 41.4 VOL% (35.7-47.0); Hemoglobin 13.9 GM/DL (12.0-16.0); Immature Granulocytes % 0.4 %; Immature Granulocytes Absolute 0.05 #; Lymphocytes # 3.6 10*3/uL (1.4-4.0); Lymphocytes % 30.5 % (21.3-54.2); Mean Corpuscular HGB Conc 33.6 GM/DL (32-36); Mean Corpuscular Volume 86.1 FL (87-102); Mean Platelet Volume 10.6 FL (9.6-12.0); Monocytes % 7.9 % (1.7-12.7); Neutrophils % 59.5 % (38.7-73.9); Platelet Count 221 T/CUMM (130-400); Red Blood Count 4.81 MC/CUMM (3.8-5.5); Red Cell Distribution Width 13.9 % (9.3-17.3); White Blood Count 11.9 T/CUMM (4-12)
[2021-04-20 04:47] LABS: Alanine Aminotransferase 60 U/L (13-56); Albumin 3.5 G/DL (3.4-5.0); Alkaline Phosphatase 52 U/L (45-117); Aspartate Amino Transferase 87 U/L (0-37); Bilirubin,Total < 0.39 MG/DL (0.2-1.0); Blood Urea Nitrogen 13 MG/DL (7-18); Calcium 8.9 MG/DL (8.5-10.1); Carbon Dioxide 25 MMOL/L (21-32); Estimated Glom Filtration Rate 61 ML/MIN; Glucose 85 MG/DL (74-106); Osmolality,Calculated 281.1 MOS/KG (273-304); Potassium 3.5 MMOL/L (3.5-5.1); Sodium 142 MMOL/L (136-145); Total Protein 7.3 G/DL (6.4-8.2)
[2021-04-20 04:56] LABS: Risk Ratio 2.95; VLDL CHOLESTEROL 29.8 MG/DL
[2021-04-20] MEDS ORDERED: NITROGLYCERIN 0.4 MG/HR PATCH TRANSDERM PRN (08:36)
[2021-04-20] MEDS ORDERED: NON-FORMULARY MEDICATION (Cranberry Conc-Ascorbic Acid 4,200-20 mg Capsule) PO SCH (09:00)
[2021-04-20] MEDS: INSULIN REGULAR 100 UNIT/ML SUBCUT SCH ×4 (09:01→21:19)
[2021-04-20] MEDS: amLODIPine 5 MG TABLET PO SCH ×2 (09:31→12:32)
[2021-04-20] MEDS: hydroCHLOROthiazide 12.5 MG CAPSULE PO SCH ×2 (09:31→12:32)
[2021-04-20] MEDS: BISOPROLOL 5 MG TABLET PO SCH ×2 (09:32→12:32)
[2021-04-20] MEDS: POTASSIUM GLUCONATE 500 MG TABLET PO SCH ×3 (09:32→21:19)
[2021-04-20] MEDS: PANTOPRAZOLE 40 MG TABLET PO SCH ×3 (09:32→17:31)
[2021-04-20 13:30] LABS: Bilirubin,Urine Negative (Negative); Blood, Urine Negative (Negative); Glucose,Urine (UA) Negative (Negative); Ketones,Urine Negative (Negative); Mucus,Urine Occasional /LPF (Occasional); Nitrite,Urine Negative (Negative); Protein,Urine Negative; RBC,Urine 2 /HPF (0-4); Squamous Epithelial Cell,Urine Occasional /HPF (0-10); Urine Appearance CLEAR (Clear); Urine Color Straw (Yellow); Urine Specific Gravity 1.008 (1.001-1.035); Urine Urobilinogen < 2.0 EU/DL (0.2-1.0)
[2021-04-20] MEDS ORDERED: MIRTAZAPINE 15 MG TABLET PO SCH (21:00)
[2021-04-20] MEDS ORDERED: ROSUVASTATIN 10 MG TABLET PO SCH (21:00)
[2021-04-20] MEDS ORDERED: ASPIRIN EC 81 MG TABLET PO SCH (21:00)
[2021-04-20] MEDS ORDERED: ALUM/MAG/SIMETH/LIDO VISC 1:1 30 ML BOTTLE PO ONE (21:29)
[2021-04-21] MEDS: PANTOPRAZOLE 40 MG TABLET PO SCH (05:50)
[2021-04-21] MEDS: amLODIPine 5 MG TABLET PO SCH (10:18)
[2021-04-21] MEDS: hydroCHLOROthiazide 12.5 MG CAPSULE PO SCH (10:18)
[2021-04-21] MEDS: BISOPROLOL 5 MG TABLET PO SCH (10:18)
[2021-04-21] MEDS: POTASSIUM GLUCONATE 500 MG TABLET PO SCH (10:18)
[2021-04-21] MEDS: INSULIN REGULAR 100 UNIT/ML SUBCUT SCH ×2 (10:19→12:42)
[2021-04-21] MEDS: ENOXAPARIN 40 MG/0.4 ML SYRINGE SUBCUT SCH (10:23)
[2021-04-21 12:01] VITALS: BP 115/49
== END 2021-04-21 13:40 | disposition home or self-care (01) ==
LOC: EDBD → EDUNIT# → N.EDINP 21:26 → N.ED 21:26 → N.5E 04-20 04:21
PROVIDERS: ADMIT Internal Medicine; ATTEND Internal Medicine